=== PATIENT | female | born 1990 | race Caucasian/White ===

== ENCOUNTER 2016-10-20 04:39 | Emergency (ER) | payer OTHER ==
[~2016-10-20] VITALS: Ht 165.1 cm; Wt 85.0 kg
[~2016-10-20 04:39] MED LIST: FER325 PO; IBUP-1542 PO; LABE200T3 PO; METF-480 PO; PREN-39 PO
[2016-10-20 04:45] VITALS: Ht 165.1 cm; Wt 85.0 kg
--- NOTE | 2016-10-20 05:07 | ERD ---
ER Documentation Chief Complaint Date/Time DATE: 10/20/16 TIME: 05:04 Chief Complaint lower abd pain x 1 hour HPI Patient is a 26-year-old otherwise healthy female who presents with pelvic pain to begin an hour ago. She states the pain was very strong but she took Motrin and now the pain is very mild. She states she try to go to the bathroom to urinate but she could not. She denies any hematuria, urinary frequency,. Denies any fever. Last menstrual period was last week. Denies any nausea or vomiting or diarrhea. ROS All systems reviewed and are negative except as per history of present illness. Medications Home Meds Active Scripts Ibuprofen* (Motrin*) 800 Mg Tab, 800 MG PO Q6, #30 TAB Prov:ANGELA RODRIGUEZ PA-C 10/20/16 Ibuprofen* (Motrin*) 600 Mg Tab, 600 MG PO Q6, #30 TAB Prov:DIAMOND BOLTON 05/26/15 Reported Medications Ferrous Sulfate* (Ferrous Sulfate*) 325 Mg Tabec, 325 MG PO DAILY, TAB 07/08/14 Vits W-Ca,Fe,Fa(<1MG) ( Vitamins) 1 Tab Tablet, 1 TAB PO 07/08/14 Labetalol Hcl (Normodyne) 200 Mg Tablet, 200 MG PO BID, TAB 07/08/14 Metformin* (Glucophage*) 850 Mg Tablet, 850 MG PO BID, TAB 07/08/14 Allergies Allergies: Coded Allergies: No Known Allergy (Unverified , 05/26/15) PMhx/Soc History of Surgery: Yes (C SECTION) Anesthesia Reaction: No Hx Neurological Disorder: No Hx Respiratory Disorders: No Hx Cardiac Disorders: No Hx Psychiatric Problems: No Hx Miscellaneous Medical Probl: Yes (DM AND HTN DURING ) Hx Alcohol Use: No Hx Substance Use: No Hx Tobacco Use: No FmHx Family History: No diabetes Physical Exam Vitals Vital Signs Date Time Temp Pulse Resp B/P Pulse Ox O2 Delivery O2 Flow Rate FiO2 10/20/16 04:45 97.9 90 20 133/81 97 Physical Exam INITIAL VITAL SIGNS: Reviewed by me GENERAL: Awake, alert and oriented x 4, well appearing, nontoxic, speaking in full sentences. No acute distress HEAD: Atraumatic RESPIRATORY: Clear to auscultation bilaterally. Symmetric chest wall rise. No wheezing or rales. No accessory muscle use. CV: Regular rate and rhythm. No murmurs, rubs, or gallops. ABDOMEN: Soft, non-distended. Nontender. Negative [place]. Negative McBurneys point tenderness. No CVA tenderness bilaterally. No guarding. No rebound. : Deffered. EXTREMITIES: No clubbing or cyanosis. No edema. Moving all extremities normally. BACK: No midline tenderness to palpation. No step-offs. SKIN: Warm and dry. No rash or petechiae. NEUROLOGIC: Normal mental status and speech. Face is symmetric. Moves all extremities equally. Motor and sensory distally intact. Normal coordination. Ambulates with a strong steady gait. Results 24 hrs Laboratory Tests Test 10/20/16 05:25 Bedside Urine pH (LAB) 5.5 Bedside Urine Protein (LAB) 1+ Bedside Urine Glucose (UA) 0.50% Bedside Urine Ketones (LAB) 1+ Bedside Urine Blood Negative Bedside Urine Nitrite (LAB) Negative Bedside Urine Leukocyte Esterase (L Negative Procedures/MDM Patient presents with pelvic pain that is now resolving after she took Motrin. Patients is alert, oriented, well appearing, and in no distress with normal vital signs. There is no fever, tachycardia, or tachypnea. The differential diagnosis includes but is not limited to appendicitis, cholelithiasis, cholecystitis, pancreatitis, hepatitis, gastritis, ovarian torsion, peptic ulcer disease, bowel obstruction, diverticulitis, renal disease including stones , AAA, pyelonephritis, and others. Her GI examination is benign and she has no tenderness throughout her abdomen including over her gallbladder or over her appendix. She has no CVA tenderness. She is well-appearing in no distress. Urine dip and urine test was ordered. Urine showed no evidence of infection and she is not . No clear etiology for her symptoms but her pain is now resolved and she is well-appearing in no distress and I have a low suspicion for any acute emergent intra-abdominal or pelvic abnormality so she is discharged with Motrin. Patient counseled regarding my diagnostic impression and care plan. Prior to discharge all questions answered. Pt agrees with treatment plan and understands strict return precautions. Pt is instructed to follow up with primary care provider within 24-48 hours. Precautionary instructions provided including instructions to return to the ER if not improving or for any worsening or changing symptoms or concerns. Departure Diagnosis: Primary Impression: Acute pain in female pelvis Condition: Stable RODRIGUEZ,ANGELA PA-C Oct 20, 2016 05:07
[2016-10-20 05:19] LABS: URINE BLOOD (Dip) POC Negative (NEGATIVE)
[2016-10-20] MEDS ORDERED: IBUP800T25 PO (05:31)
[2016-10-20 05:38] VITALS: BP 129/79; PULSE 68; RESP 18
[2016-10-20 16:09] LABS: URINE BLOOD (Dip) POC Negative (NEGATIVE)
== END 2016-10-20 05:36 | disposition home or self-care (01) ==
LOC: FTE 04:39
DX: R10.2 Pelvic and perineal pain (principal); Z79.84 Long term (current) use of oral hypoglycemic drugs
CPT/HCPCS: 81003; 99283